=== PATIENT | female | born 1950 | race Caucasian/White ===

== ENCOUNTER 2016-07-03 15:49 | Outpatient (CLI) | payer OTHER | END 2016-07-03 15:50 | disposition home or self-care (01) | DX: G47.33 Obstructive sleep apnea (adult) (pediatric) (principal) ==

== ENCOUNTER 2017-06-21 11:13 | Outpatient (CLI) | payer MEDICARE, OTHER | END 2017-06-21 11:14 | disposition home or self-care (01) | LOC: SC 11:13 | PROVIDERS: ATTEND Nurse Practitioner Family | DX: G47.33 Obstructive sleep apnea (adult) (pediatric) (principal) | CPT/HCPCS: 99213; G0463; 99212 ==

== ENCOUNTER 2018-07-10 08:39 | Outpatient (CLI) | payer MEDICARE, OTHER | END 2018-07-10 08:40 | disposition home or self-care (01) | LOC: SC 08:39 | PROVIDERS: ATTEND Nurse Practitioner Family | DX: G47.33 Obstructive sleep apnea (adult) (pediatric) (principal) | CPT/HCPCS: 99214; G0463; 99212 ==

== ENCOUNTER 2020-07-05 10:37 | Outpatient (CLI) | payer MEDICARE, OTHER ==
--- NOTE | 2020-07-05 13:13 | SLEEP CARE CONSULTATION ---
Information from patient questionnaire entered by Leslie Damian. I have reviewed and concur with the information entered by Leslie Damian. This document represents the service I personally performed and the decisions made by me, Kim Chirinos MD, [facility]. History of Present Illness Service Date and Time: 07/05/2020 1037 Previous diagnosis: Moderate, Obstructive Sleep Apnea-Hypopnea Syndrome AHI: 16.8 (in 2015) Reason for follow up: annual (last seen 06/2019) Equipment type: CPAP Equipment obtained from: [employer] Mask style: Nasal Mask brand: Respironics (Dreamwear) Prior sleep studies: Yes Year and Where: 2016 - [facility] Type of Sleep Study: Polysomnography HPI additional information: HPI: Ms. Ureña returned today for follow up of nasal CPAP therapy. She was diagnosed to have moderate obstructive sleep apnea-hypopnea syndrome. The patient bought the Respironics DreamStation from [employer] but [facility] She wears a Respironics DreamWear nasal cushion mask. She reports using the device nightly and all through the night. The compliance report shows usage in 360 nights out of the past 360 nights, averaging 8.2 hours a night. She complained of no particular problem with the device such as soreness on the face, dry nose, epistaxis, nasal congestion or headache. She thinks that the pressure of 10 cmH2O is comfortable. On the CPAP therapy she n otices improvement in her sleep quality, and that she wakes up feeling fresher in the morning and more awake/alert during the day. The [place] Sleepiness Scale score 3. She sleep alone and does not know if she snores. The average residual AHI is 1.5; and average time in large leak per day is 38 seconds. CPAP Compliance Data - Data Reviewed with Patient Average duration of nightly device use: 8 hr 7 min Compliance rate %: 100 (180 days) Current pressure setting (cmH2O): 10 Humidity settin Heated hose settin Average residual AHI: 1.5 Average large leak: 1 min 11 sec Subjective Patient concerns: reports: dry mouth, nose, throat (on occassion), other (lid on water tank has popped open a few times) Initial [place] Sleepiness Scale score: 14 (in 2014) Current [place] Sleepiness Scale score: 3 Allergies and Home Medications Drug allergies reviewed: Yes Home medication list reviewed: Yes Review of Systems Review of systems same as previous: Yes Physical Exam Height: 5 ft 6 in Weight: 230 lb Body Mass Index: 37.1 BMI Classification: Obese Impression and Plan IMPRESSION: 1. Obstructive Sleep Apnea-Hypopnea Syndrome, moderate, with the patient doing well on nasal CPAP therapy. She has excellent compliance and significant clinical improvement. The current pressure appears effective and comfortable. Overall, she is very satisfied with treatment and plans to continue with it long-term. Because the CPAP is now older than the useful life of 5 years, I will order the patient a new one and make it an autoCPAP set between 8 and 10 cmH2O. PLAN: 1. Prescription made for an autoCPAP, heated humidifier, and related supplies. The patient will stay with [facility]. 2. Try to lose weight 3. Try ResMed N30i mask. 4. Return for follow up after one month on the new machine. Follow up recommended for: Weight management Visit Type: In Office Time Spent with Patient (minutes): 15 Provider Statement: I spent 100% of the Face to Face Visit with the patient with greater than 50% spent counseling the patient and coordination of care.
== END 2020-07-05 10:38 | disposition home or self-care (01) ==
LOC: SC 10:37
PROVIDERS: ATTEND Internal Medicine Pulmonary Disease
DX: G47.33 Obstructive sleep apnea (adult) (pediatric) (principal); E66.9 Obesity, unspecified; Z68.37 Body mass index [BMI] 37.0-37.9, adult
CPT/HCPCS: 99212; G0463

== ENCOUNTER 2020-09-13 10:21 | Outpatient (CLI) | payer MEDICARE, OTHER ==
--- NOTE | 2020-09-13 12:43 | SLEEP CARE CONSULTATION ---
Information from patient questionnaire entered by Leslie Damian. I have reviewed and concur with the information entered by Leslie Damian. This document represents the service I personally performed and the decisions made by me, Kim Chirinos MD, [facility]. History of Present Illness Service Date and Time: 09/13/2020 1021 Previous diagnosis: Moderate, Obstructive Sleep Apnea-Hypopnea Syndrome AHI: 16.8 (in 2015) Reason for follow up: first compliance after device update Equipment type: CPAP Equipment obtained from: [employer] Mask style: Nasal Prior sleep studies: Yes Year and Where: 2016 - [facility] Type of Sleep Study: Polysomnography HPI additional information: HPI: Ms. Ureña returned today for follow up of nasal CPAP therapy. She was diagnosed to have moderate obstructive sleep apnea-hypopnea syndrome. The patient recently acquired a new device from [employer] for the equipment and was fitted with a Respironics DreamWear nasal cushion mask. She reports using the device nightly and all through the night. The compliance report shows usage in 30 nights out of the past 30 nights, averaging 8.1 hours a night. She complained of no particular problem with the device such as soreness on the face, dry nose, epistaxis, nasal congestion or headache. She thinks that the pressure of 8 - 10 cmH2O is comfortable. On the CPAP therapy she notices improvement in her sleep quality, and that she wakes up feeling fresher in the morning and more awake/alert during the day. The [place] Sleepiness Scale score 3. Her notices no snore at all. The average residual AHI is 1.3;: and air leak, 2.1 L/min. The 90th percentile pressure is 9.9 cmH2O. CPAP Compliance Data - Data Reviewed with Patient Average duration of nightly device use: 8 hr 2 min Compliance rate %: 100 Current pressure setting (cmH2O): 8-10 Humidity settin Average residual AHI: 1.3 Subjective Initial [place] Sleepiness Scale score: 14 (in 2014) Current [place] Sleepiness Scale score: 3 Allergies and Home Medications Drug allergies reviewed: Yes Home medication list reviewed: Yes Review of Systems Review of systems same as previous: Yes Physical Exam Height: 5 ft 6 in Weight: 232 lb Body Mass Index: 37.4 BMI Classification: Obese Impression and Plan IMPRESSION: 1. Obstructive Sleep Apnea-Hypopnea Syndrome, moderate (AHI was 16.8 in 2016) with the patient doing well on nasal CPAP therapy. She has excellent compliance and significant clinical improvement. The current pressure appears effective and comfortable. Overall, she is very satisfied with treatment and plans to continue with it long-term. No adjustment is necessary today. PLAN: 1. Continue with autoCPAP set at 5 - 15 cmH2O. 2. Try to lose weight 3. Return in one year for follow up or earlier if there is any problem with the treatment. Follow up recommended for: Weight management Visit Type: In Office Time Spent with Patient (minutes): 15 Provider Statement: I spent 100% of the Face to Face Visit with the patient with greater than 50% spent counseling the patient and coordination of care.
== END 2020-09-13 10:22 | disposition home or self-care (01) ==
LOC: SC 10:21
PROVIDERS: ATTEND Internal Medicine Pulmonary Disease
DX: G47.33 Obstructive sleep apnea (adult) (pediatric) (principal); E66.9 Obesity, unspecified; Z68.37 Body mass index [BMI] 37.0-37.9, adult
CPT/HCPCS: 99212; G0463

== ENCOUNTER 2021-09-12 12:13 | Outpatient (CLI) | payer MEDICARE, OTHER ==
--- NOTE | 2021-09-12 14:33 | SLEEP CARE CONSULTATION ---
Information from patient questionnaire entered by Geena Mack. I have reviewed and concur with the information entered by Geena Mack. This document represents the service I personally performed and the decisions made by me, Kim Chirinos MD, [facility]. History of Present Illness Service Date and Time: 09/12/2021 1213 Previous diagnosis: Moderate, Obstructive Sleep Apnea-Hypopnea Syndrome AHI: 16.8 (in 2015) Reason for follow up: annual (LAST SEEN 08/2020 ) Equipment type: CPAP Equipment obtained from: [employer] Mask style: Nasal Prior sleep studies: Yes Year and Where: 2015 - [facility] Type of Sleep Study: Polysomnography HPI additional information: Ms. Ureña returned today for follow up of nasal CPAP therapy. She was diagnosed to have moderate obstructive sleep apnea-hypopnea syndrome. The patient bought her new ResMed AirSense 10 from [employer]. She wears a Respironics DreamWear nasal cushion mask. She reports using the device nightly and all through the night. The compliance report shows usage in 364 nights out of the past 365 nights, averaging 8.0 hours a night. She complained of no particular problem with the device such as soreness on the face, dry nose, epistaxis, nasal congestion or headache. She thinks that the pressure of 8 - 10 cmH2O is comfortable. On the CPAP therapy she notices improvement in her sleep quality, and that she wakes up feeling fresher in the morning and more awake/alert during the day. She sleep alone and does not know if she snores. The average residual AHI is 1.2; and average air leak is 2.7 L/minute. Sleep Study - Results Type of Sleep Study: Polysomnography Prior sleep studies: Yes Year and Where: 2015 - [facility] Subjective Initial [place] Sleepiness Scale score: 14 (in 2015) Allergies and Home Medications Drug allergies reviewed: Yes Home medication list reviewed: Yes Allergy and home medication list: Allergies Sulfa (Sulfonamide Antibiotics) Allergy (Verified 11/10/13 16:13) Rash Review of Systems Review of systems same as previous: Yes Physical Exam Height: 5 ft 6 in Impression and Plan IMPRESSION: 1. Obstructive Sleep Apnea-Hypopnea Syndrome, moderate, with the patient continuing to do well on nasal CPAP therapy. She has excellent com pliance and significant clinical improvement. The current pressure appears effective and comfortable. Overall, she is very satisfied with treatment and plans to continue with it long-term. No adjustment is necessary today. PLAN: 1. Continue with CPAP at the current setting. 2. Try to lose weight 3. Return for follow up in a year or earlier if there is any problem. Follow up with Sleep Care in: 1 year Visit Type: Telehealth Video (PHONE# [phone]) Video Type: Doximity Patient Location: Home Location of Provider: Home Patient agrees and consents to this telehealth visit type: Yes Patient agrees to have their insurance billed: Yes Time Spent with Patient (minutes): 15 Provider Statement: I spent 100% of the Telehealth Video Call with the patient with greater than 50% spent counseling the patient and coordination of care.
== END 2021-09-12 12:14 | disposition home or self-care (01) ==
LOC: SC 12:13
PROVIDERS: ATTEND Internal Medicine Pulmonary Disease
DX: G47.33 Obstructive sleep apnea (adult) (pediatric) (principal)

== ENCOUNTER 2022-09-11 13:55 | Outpatient (CLI) | payer MEDICARE, OTHER ==
--- NOTE | 2022-09-11 16:41 | SLEEP CARE CONSULTATION ---
Information from patient questionnaire entered by Dulce Maria Elliott. I have reviewed and concur with the information entered by Dulce Maria Elliott. This document represents the service I personally performed and the decisions made by me, Kim Chirinos MD, [facility]. History of Present Illness Service Date and Time: 09/11/2022 1355 Previous diagnosis: Moderate, Obstructive Sleep Apnea-Hypopnea Syndrome AHI: 16.8 (in 2015) Reason for follow up: annual (LAST SEEN 08/2021) Equipment type: CPAP Equipment obtained from: [employer] Mask style: Nasal Prior sleep studies: Yes Year and Where: 2015 - [facility] Type of Sleep Study: Polysomnography HPI additional information: Ms. Ureña returned today for follow up of nasal CPAP therapy. She was diagnosed to have moderate obstructive sleep apnea-hypopnea syndrome. The patient recently acquired a new device from [employer] for the equipment and was fitted with a Respironics DreamWear nasal cushion mask. She reports using the device nightly and all through the night. The compliance report shows usage in 179 nights out of the past 180 nights, averaging 8.2 hours a night. She complained of no particular problem with the device such as soreness on the face, dry nose, epistaxis, nasal congestion or headache. She thinks that the pressure of 8 - 10 cmH2O is comfortable. On the CPAP therapy she notices improvement in her sleep quality, and that she wakes up feeling fresher in the morning and more awake/alert during the day. The [place] Sleepiness Scale score 2. Her notices no snore at all. The average residual AHI is 1.1: and air leak, 5.2 L/min. The 90th percentile pressure is 9.9 cmH2O. Sleep Study - Results Type of Sleep Study: Polysomnography Prior sleep studies: Yes Year and Where: 2015 - [facility] CPAP Compliance Data - Data Reviewed with Patient Average duration of nightly device use: 8HRS 11MINS Compliance rate %: 99 (03/12/22-09/07/22) Current pressure setting (cmH2O): 8-10 Average residual AHI: 1.1 Subjective Initial [place] Sleepiness Scale score: 14 (in 2014) Current [place] Sleepiness Scale score: 2 (09/11/22) Allergies and Home Medications Drug allergies reviewed: Yes Home medication list reviewed: Yes Allergy and home medication list: Allergies Sulfa (Sulfonamide Antibiotics) Allergy (Verified 09/08/22 10:26) Rash Review of Systems Review of systems same as previous: Yes Physical Exam Vital signs obtained and entered by: DULCE MARIA Palmer MA Blood Pressure: 128/70 (LEFT ARM) Cuff size: regular Heart Rate: 75 O2 Saturation: 97 Height: 5 ft 6 in Weight: 244 lb 3.2 oz Body Mass Index: 39.4 BMI Classification: Obese Impression and Plan IMPRESSION: 1. Obstructive Sleep Apnea-Hypopnea Syndrome, moderate (AHI was 16.8 in 2016) with the patient continuing to do well on nasal CPAP therapy. She has excellent compliance and significant clinical improvement. The current pressure appears effective and comfortable. Overall, she is very satisfied with treatment and plans to continue with it long-term. No adjustment is necessary today. The patient would like to purchase a traveling CPAP. PLAN: 1. Continue with autoCPAP set at 8 - 10 cmH2O. 2. Try to lose weight 3. Prescription made for a traveling autoCPAP set at 8 10 cmH2O. 4. Return in one year for follow up or earlier if there is any problem with the treatment. Counseling Topics: Weight control Prescriptions: Auto CPAP Follow up with Sleep Care in: 1 year Visit Type: In Office Time Spent with Patient (minutes): 15 Provider Statement: I spent 100% of the Face to Face Visit with the patient with greater than 50% spent counseling the patient and coordination of care.
[2022-09-11 16:42] VITALS: BP 128/70
== END 2022-09-11 13:56 | disposition home or self-care (01) ==
LOC: SC 13:55
PROVIDERS: ATTEND Internal Medicine Pulmonary Disease
DX: G47.33 Obstructive sleep apnea (adult) (pediatric) (principal); E66.9 Obesity, unspecified; Z68.39 Body mass index [BMI] 39.0-39.9, adult
CPT/HCPCS: 99212; G0463

== ENCOUNTER 2023-09-18 08:37 | Outpatient (CLI) | payer MEDICARE, OTHER ==
--- NOTE | 2023-09-18 09:05 | Sleep Patient Instructions ---
Sleep Center Visit Summary - Patient Visit Information Reason for Visit: Annual follow-up - Patient Instructions Additional Instructions: You will continue with CPAP therapy with pressure set at 8-10 cmH2O. A supply prescription will be updated with your DME. We encourage you to continue to try to lose weight. Please follow up with the sleep care office in 1 year. - Clinic Information Contact: [facility] [address] [place] [address] [email or web address] T: [phone]
--- NOTE | 2023-09-18 09:10 | SLEEP CARE CONSULTATION ---
Information from patient questionnaire entered by Dulce Maria Elliott. I have reviewed and concur with the information entered by Dulce Maria Elliott. This document represents the service I personally performed and the decisions made by me, Shelley Malik ARNP. History of Present Illness Service Date and Time: 09/18/2023 0837 Previous diagnosis: Moderate, Obstructive Sleep Apnea-Hypopnea Syndrome AHI: 16.8 (in 2015) Reason for follow up: annual (LAST SEEN 08/2022) Equipment type: CPAP (RESMED Airsense 10, 08/10/2020) Equipment obtained from: [employer] (getting supplies) Mask style: Nasal Backup mask available: Yes Last cushion change: 2 weeks ago Prior sleep studies: Yes Year and Where: 2015 - [email or web address] Type of Sleep Study: Polysomnography HPI additional information: VENUS FOOTE was diagnosed to have moderate, AHI 16.8, obstructive sleep apnea- hypopnea syndrome and returned today for CPAP therapy annual follow-up. Sleep Study - Results Type of Sleep Study: Polysomnography Prior sleep studies: Yes Year and Where: 2015 - [email or web address] CPAP Compliance Data - Data Reviewed with Patient Average duration of nightly device use: 8 HRS 15 MINS Compliance rate %: 85 (09/13/22-09/12/23) Current pressure setting (cmH2O): 8-10 Average residual AHI: 1.4 Central apnea: 0.1 Obstructive apnea: 0.8 Hypopnea: 0.5 Average large leak: 3.8 L/min Compliance data discussion: She has a travel machine, [employer], that she uses on days she is travelling. She uses a CPAP every night. Subjective Missed days of use due to: reports: travel (using her travel CPAP) Patient concerns: denies: aerophagia, mask discomfort, air blowing in eyes, mask leak noise, condensation in mask/hose, nasal congestion, dry mouth, nose, throat, epistaxis Observed to snore while using device: No Current pressure setting perceived as: comfortable On therapy, patient: reports: sleeping better, awakening more refreshed, being more awake and alert during the day, more rested overall. denies: drowsiness while driving Initial [place] Sleepiness Scale score: 14 (in 2014) Current [place] Sleepiness Scale score: 1 (09/18/23) Allergies and Home Medications Known drug allergies: Yes Drug allergies reviewed: Yes Home medication list reviewed: Yes (no changes) Allergy and home medication list: Allergies Sulfa (Sulfonamide Antibiotics) Allergy (Verified 09/13/23 12:59) Rash Review of Systems Review of systems same as previous: Yes (NO CHANGE) Physical Exam Vital signs obtained and entered by: DULCE MARIA Palmer MA Blood Pressure: 151/94 (LEFT ARM) Cuff size: regular Heart Rate: 80 O2 Saturation: 95 Height: 5 ft 6 in Weight: 249 lb 9.6 oz Weight change since last visit: 5 lb gain Body Mass Index: 40.3 BMI Classification: Morbidly Obese Impression and Plan 1. Obstructive Sleep Apnea-Hypopnea Syndrome, moderate, with good treatment compliance and good apnea control. On CPAP therapy, the patient has better sleep quality and is more rested overall. Patient is very compliant with using her CPAP. She uses a travel CPAP when she is traveling. Patient has significant improvement of their sleep apnea and is satisfied with current CPAP therapy. Patient denies problems with oral dryness, nasal congestion, epistaxis, skin irritation or aerophagia. Patient's apnea severity and rationale for treatment to reduce apnea, improve sleep quality and reduce cardiovascular and cerebrovascular events was reviewed. I also reviewed the benefit of consistent device use of CPAP for gastric reflux. 2. Obesity, unspecified. Currently patients BMI is 40.3. Obesity increases the risk of apnea, CPAP pressure requirements and overall health risks especially cardiovascular and diabetes. Thus patient is advised to lose weight. * Continue auto CPAP pressure at 8-10 cmH2O * Update supply prescription * Notify me if snoring with mask or feeling that the pressure is too much or too little * Attempt to lose weight * Call this office if any problems using CPAP * Return for follow up in 12 months, or sooner if concerns arise Counseling Topics: Spare mask, Weight loss health impact Prescriptions: Device supplies Follow up with Sleep Care in: 1 year Visit Type: In Office Time Spent with Patient (minutes): 20 Provider Statement: I spent 100% of the Face to Face Visit with the patient with greater than 50% spent counseling the patient and coordination of care.
[2023-09-18 09:14] VITALS: BP 151/94; O2SAT 95
== END 2023-09-18 08:38 | disposition home or self-care (01) ==
LOC: SC 08:37
PROVIDERS: ATTEND Nurse Practitioner Family
DX: G47.33 Obstructive sleep apnea (adult) (pediatric) (principal); E66.01 Morbid (severe) obesity due to excess calories; Z68.41 Body mass index [BMI] 40.0-44.9, adult
CPT/HCPCS: 99213; G0463; 99212